=== PATIENT | male | born 1980 | race Native Hawaiian/Other Pacific Islander ===

== ENCOUNTER 2016-06-06 20:38 | Emergency (ER) | payer OTHER ==
[~2016-06-06] VITALS: Ht 182.9 cm; Wt 76.2 kg
[2016-06-06 20:52] VITALS: BP 118/68; TEMP 98.4
[2016-06-06 21:19] LABS: PLATELET COUNT 184 K/uL (142-355)
[2016-06-06 21:34] LABS: POTASSIUM 4.2 mmol/L (3.6-5.2); SODIUM 138 mmol/L (136-145)
== END 2016-06-06 22:15 | disposition home or self-care (01) ==
LOC: ED 20:38
DX: J06.9 Acute upper respiratory infection, unspecified (principal); J01.90 Acute sinusitis, unspecified
CPT/HCPCS: 80053; 85027; 87081; 87804; 87880; 96372; 99283; J0696

== ENCOUNTER 2018-04-14 19:57 | Emergency (ER) | payer OTHER ==
[~2018-04-14] VITALS: Ht 182.9 cm; Wt 86.6 kg
[2018-04-14 20:59] VITALS: BP 128/76; TEMP 99
== END 2018-04-14 20:59 | disposition home or self-care (01) ==
LOC: ED 19:57
DX: M54.12 Radiculopathy, cervical region (principal); G93.5 Compression of brain
CPT/HCPCS: 96372; 99283; J2270; J2405

== ENCOUNTER 2018-05-05 18:19 | Emergency (ER) | payer OTHER ==
[~2018-05-05] VITALS: Ht 182.9 cm; Wt 86.2 kg
[2018-05-05] MEDS ORDERED: CHANTIX1 MG PO (18:52)
[2018-05-05 19:52] VITALS: BP 114/63; TEMP 97.8
== END 2018-05-05 19:52 | disposition home or self-care (01) ==
LOC: ED 18:19
DX: Q07.00 Arnold-Chiari syndrome without spina bifida or hydrocephalus (principal); M54.89 Other dorsalgia
CPT/HCPCS: 99283; J1885

== ENCOUNTER 2018-08-31 18:07 | Emergency (ER) | payer OTHER ==
[~2018-08-31] VITALS: Ht 182.9 cm; Wt 85.7 kg
[~2018-08-31 18:07] MED LIST: CHANTIX1 MG PO
[2018-08-31 18:10] VITALS: BP 137/71; TEMP 98.1
== END 2018-08-31 19:09 | disposition home or self-care (01) ==
LOC: ED 18:07
DX: S92.535A Nondisplaced fracture of distal phalanx of left lesser toe(s), initial encounter for closed fracture (principal); W22.8XXA Striking against or struck by other objects, initial encounter; Y93.89 Activity, other specified; Y92.018 Other place in single-family (private) house as the place of occurrence of the external cause
CPT/HCPCS: 99282

== ENCOUNTER 2018-09-02 13:11 | Outpatient (CLI) | payer OTHER | END 2018-09-02 23:20 | disposition home or self-care (01) | LOC: LAB 13:11 | DX: J32.0 Chronic maxillary sinusitis (principal) | CPT/HCPCS: 87070; 87205 ==

== ENCOUNTER 2022-09-30 20:39 | Emergency (ER) | payer OTHER ==
[~2022-09-30] VITALS: Ht 182.9 cm; Wt 82.6 kg
[2022-09-30 20:43] VITALS: TEMP 98
[2022-09-30 21:02] LABS: PLATELET COUNT 263 K/uL (142-355)
[2022-09-30 21:04] LABS: POTASSIUM 4.3 mmol/L (3.6-5.2); SODIUM 139 mmol/L (136-145)
[2022-09-30 21:14] LABS: PARTIAL THROMBOPLASTIN TIME 29.1 SECONDS (23.9-36.7)
[2022-09-30 22:30] VITALS: BP 122/88
== END 2022-09-30 22:30 | disposition home or self-care (01) ==
LOC: ED 20:39
PROVIDERS: Family Medicine
DX: M94.0 Chondrocostal junction syndrome [Tietze] (principal); F41.0 Panic disorder [episodic paroxysmal anxiety]; F17.210 Nicotine dependence, cigarettes, uncomplicated
CPT/HCPCS: 80053; 80307; 81002; 82150; 82550; 84484; 85027; 85610; 85730; 93005; 96361; 96365; 96374; 96375; 99284; J1885; J2930; J3360